=== PATIENT | female | born 1950 | race American Indian/Alaskan Native ===

== ENCOUNTER 2017-01-15 09:59 | Outpatient (CLI) | payer OTHER ==
[2017-01-15 10:42] LABS: Blood Urea Nitrogen 9 mg/dL (7-17)
--- NOTE | 2017-01-17 17:43 | Magnetic Resonance Report ---
MR scan of the cranium was performed with and without contrast. Pulse sequences included: 1. T1 weighted sagittal and axial images without contrast and T1 axial and coronal images with contrast 2. T2 weighted axial and coronal images 3. FLAIR axial images 4. Diffusion-weighted axial images 5. Apparent diffusion coefficient images 6 Gradient echo axial images Views of the posterior fossa showed a normal craniocervical junction. Cerebellar pontine angles were normal with normal seventh-eighth nerve complexes. Brainstem and cerebellum were normal. The ventricular system showed no dilatation or distortion. Images of the hemispheres showed diffuse and confluent areas of increased signal in the periventricular regions. Numerous black holes were seen. Moderate cortical atrophy was present Sinuses, pituitary, flow voids in the [place] of [place], orbits, and basal ganglia were normal. There are no abnormal areas of enhancement with contrast. Impression: Abnormal MR scan of the cranium with and without contrast multiple white matter lesions, atrophy, and black holes consistent with the diagnosis of multiple sclerosis This study was compared to the previous study of 05/23/2016 and no changes are appreciated.
== END 2017-01-15 10:00 | disposition home or self-care (01) ==
LOC: MRI 09:59
PROVIDERS: ATTEND Specialist
DX: G35 Multiple sclerosis (principal); G31.9 Degenerative disease of nervous system, unspecified; G93.89 Other specified disorders of brain; R93.0 Abnormal findings on diagnostic imaging of skull and head, not elsewhere classified
CPT/HCPCS: 36415; 70553; 82565; 84520; A9577

== ENCOUNTER 2018-01-29 15:04 | Outpatient (CLI) | payer MEDICARE, OTHER ==
--- NOTE | 2018-02-01 15:48 | Magnetic Resonance Report ---
MR scan of the cranium was performed without contrast. Pulse sequences included: 1. T1 weighted sagittal and axial images without contrast 2. T2 weighted axial and coronal images 3. FLAIR axial images 4. Diffusion-weighted axial images 5. Apparent diffusion coefficient images Views of the posterior fossa showed a normal craniocervical junction. Cerebellar pontine angles were normal with normal seventh-eighth nerve complexes. Brainstem showed areas of increased signal in the basis pontis. The cerebellum was normal. The ventricular system showed mild dilatation but no distortion. Images of the hemispheres showed multiple areas of increased signal in the periventricular white matter. Multiple black holes were seen on T1 images. Sinuses showed a polyp in the left maxillary sinus. Flow voids in the [place] of [place], orbits, pituitary and basal ganglia were normal. Impression: Abnormal MR scan of the cranium without contrast. 1. Multiple white matter lesions involving the brainstem and the periventricular white matter, consistent with the diagnosis of multiple sclerosis 2. Polyp in the left maxillary sinus there is no substantial change since the scan of 01/15/2017
== END 2018-01-29 15:05 | disposition home or self-care (01) ==
LOC: MRI 15:04
PROVIDERS: ATTEND Specialist
DX: R90.82 White matter disease, unspecified (principal); J33.8 Other polyp of sinus
CPT/HCPCS: 70551